=== PATIENT | female | born 1945 | race Hispanic/Latino ===

== ENCOUNTER 2019-10-30 20:36 | Emergency (ER) | payer MEDICARE ==
[~2019-10-30] VITALS: Ht 152.4 cm; Wt 73.9 kg
[2019-10-30 20:36] VITALS: BP 160/69
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
--- NOTE | 2019-10-30 20:45 | NUR ---
PD PD AT BEDSIDE TO SPEAK WITH PATIENT.
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
[2019-10-30 21:00] VITALS: BP 136/78
[2019-10-30] MEDS ORDERED: TENIVAC SYRINGE IM ONE (21:00)
--- NOTE | 2019-10-30 21:08 | PCM.EKG ---
[facility] Test Date: 2019-10-30 Test Time: 21:04:46 Pat Name: WILVER CUNNINGHAM Department: Room: Gender: F [employer] Teacher: DANNY : 1945 Requested By: FRANCISCO ARGUELLES Order Number: [id number] Reading MD: Measurements Intervals [place] Rate: 76 P: -62 [place]: 252 QRS: 238 QRSD: 126 T: 68 QT: 430 QTc: 484 Interpretive Statements Sinus or ectopic atrial rhythm Prolonged [place] interval Nonspecific intraventricular conduction delay No previous ECG available for comparison Please click the below link to view image of tracing.
[2019-10-30 21:30] VITALS: BP 161/78
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
[2019-10-30] MEDS ORDERED: ADACEL VIAL IM ONE (21:40)
--- NOTE | 2019-10-30 21:45 | NUR ---
TETANUS TETANUS ADMINISTERED IM LEFT DELTOID PER ORDER OF MD; SEE ORDER. WILL NOT CROSS OVER TO eMAR. DR ARGUELLES NOTIFIED. LOT [id number] EXP 08/25/21
[2019-10-30 21:55] VITALS: BP 132/85
== END 2019-10-30 22:17 | disposition home or self-care (01) ==
LOC: ER 20:36 → EDBD 20:36 → ER 22:17
DX: S50.11XA Contusion of right forearm, initial encounter (principal); S50.811A Abrasion of right forearm, initial encounter; R07.89 Other chest pain; Z90.49 Acquired absence of other specified parts of digestive tract; Y08.89XA Assault by other specified means, initial encounter; Y93.89 Activity, other specified; Y92.89 Other specified places as the place of occurrence of the external cause; Y99.8 Other external cause status
CPT/HCPCS: 71045; 90471; 90715; 93005; 99284; 73090-RT